=== PATIENT | male | born 1995 | race Hispanic/Latino ===

== ENCOUNTER 2018-05-17 15:59 | Observation (INO) | payer OTHER ==
[2018-05-17 16:43] VITALS: BMI 18.0
[2018-05-17] MEDS ORDERED: CEFTRIAXONE/SWI 2gm 2 GM/20 ML SYR IV ONE (17:00)
[2018-05-17 17:21] LABS: Absolute Lymphocytes (CBC) 1.8 K/uL (0.7-4.9); Absolute Monocytes 1.6 K/uL (0.1-1.3); Absolute Neutrophil 8.8 K/uL (1.8-8.0); Hematocrit 42.6 % (39.6-49.0); Lymphocytes % 14.7 % (15.3-44.8); MCH 29.1 pg (27.0-35.0); MCV 85.9 fL (80-100); MPV 7.6 fL (7.6-11.3); Monocytes % 12.6 % (3.3-12.3); RBC Red Blood Cell Count 4.96 M/uL (4.33-5.43)
[2018-05-17] MEDS ORDERED: MORPHINE 2 MG/ML SYR IV PRN (17:22)
[2018-05-17 17:40] LABS: ALT/SGPT 12 U/L (12-78); AST/SGOT 11 U/L (15-37); Albumin 3.5 g/dL (3.4-5.0); Alkaline Phosphatase 93 U/L (45-117); BUN Blood Urea Nitrogen 10 mg/dL (7-18); Bicarbonate 27 mmol/L (21-32); Bilirubin Total 0.8 mg/dL (0.2-1.0); Glucose Level 91 mg/dL (74-106); Potassium 3.6 mmol/L (3.5-5.1); Protein, Total 7.9 g/dL (6.4-8.2); Sodium Level 135 mmol/L (136-145)
[2018-05-17] MEDS: NA CHLORIDE 0.9% 1,000 ML IV SCH ×2 (18:03→22:21)
[2018-05-17] MEDS: MORPHINE 4 MG/ML SYR IV PRN (22:22)
[2018-05-18] MEDS: MORPHINE 4 MG/ML SYR IV PRN ×4 (02:14→23:59)
[2018-05-18] MEDS: NA CHLORIDE 0.9% 1,000 ML IV SCH ×4 (06:07→23:29)
--- NOTE | 2018-05-18 12:36 | P.CNS ---
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 Was seen by PCP and put on PCN BID but was unable to swallow the pills. He was crushing the tablets and dissolving them but could only tolerate 1 per day and would frequent vomit after taking. He did not improved. Yesterday evening, he was admitted to the floor for IV Abx. He continues to have severe sore throat and ear pain and difficulty swallowing. Allergies No Known All Allergy (Uncoded 06/16/17 21:32) Unknown No Known Allergies Allergy (Uncoded 12/16/17 19:39) Unknown Home Medications: Amoxicillin/Potassium Clav [Amox-Clav 875-125 mg Tablet] 1 tab PO BID 05/17/18 traMADol HCL [Ultram*] 1 tab PO Q6H PRN 05/17/18 - Past Medical/Surgical History Diabetic: No Past Medical History: Patient denies medical history Past Surgical History: Patient denies surgical history - Family History Mother Medical History: Diabetes - Social History Smoking Status: Current every day smoker Counseled patient to stop smoking for: less than 10 minutes Patient receptive to therapy: Yes Alcohol use: Yes CD- Drugs: No Caffeine use: No Place of Residence: Home Review of Systems ENT: As per HPI Physical Examination Temp Pulse Resp BP Pulse Ox 97.5 F 100 H 19 122/73 97 05/18/18 08:00 05/18/18 08:00 05/18/18 08:00 05/18/18 08:00 05/18/18 08:00 General: Alert, Cooperative HEENT: Atraumatic, Normocephalic, PERRLA, Other (moderate trismus due to pain. Uvular edema. R tonsil deviated toward midline) Neck: Supple Neurological: Other ([place] voice, significant difficult talking due to pain.) Laboratory Data (last 24 hrs) 05/17/18 17:10: Sodium 135 L, Potassium 3.6, BUN 10, Creatinine 0.90, Glucose 91 , Total Bilirubin 0.8, AST 11 L, ALT 12, Alkaline Phosphatase 93 05/17/18 17:10: WBC 12.4 H, Hgb 14.4, Hct 42.6, Plt Count 418 H Imagings Data: none performed - Problems (1) Tonsillar abscess Onset Date: 05/18/18 Current Visit: Yes Status: Acute Plan: Discussed options since he's failed medical therapy. Patient desired I&D in OR rather than in hospital room. Consent obtained verbally. Schedule TF elective cases. Continue NPO for now.
[2018-05-18] MEDS ORDERED: Ringers Lactate 1,000 ML IV ONE ×2 (16:05→17:26)
[2018-05-18] MEDS ORDERED: LIDOCAINE 1% W/EPI 1:100,000 MDV 50 ML VIAL ONE (17:25)
[2018-05-18] MEDS ORDERED: FENTANYL CITR 100 MCG/2 ML ONE (17:29)
[2018-05-18] MEDS ORDERED: BUPIVACA 0.25%/EPI 0.0005%/PF 30 ML VIAL ONE (17:29)
[2018-05-18] MEDS ORDERED: PROPOFOL 200 MG/20 ML VIAL IV ONE (17:32)
[2018-05-18] MEDS ORDERED: LIDOCAINE 2% MPF 5 ML VIAL ONE (17:34)
[2018-05-18] MEDS ORDERED: SUCCINYLCHOLINE 20 MG/ML (10 ML) IV ONE (17:36)
[2018-05-18] MEDS ORDERED: KETOROLAC 30 MG/ML INJ ONE (17:54)
[2018-05-18] MEDS ORDERED: DEXAMETHASONE 10 MG/ML VIAL ONE (17:54)
--- NOTE | 2018-05-18 18:08 | P.BOP ---
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
[2018-05-18] MEDS ORDERED: HYDROCOD 2.5mg-ACETAMIN 108mg/5mL Soln PO PRN (18:21)
[2018-05-18] MEDS: MEPERIDINE HCL 25 MG/0.5 ML ONE ×2 (18:30→18:38)
[2018-05-18] MEDS ORDERED: MEPERIDINE HCL 25 MG/0.5 ML ONE (18:58)
[2018-05-18] MEDS ORDERED: ONDANSETRON 4 MG/2 ML VIAL IV PRN (20:16)
[2018-05-18] MEDS: CLINDAMYCIN INJ 900 MG in NA CHLORIDE 0.9% 50 ML IV SCH ×2 (20:27→23:58)
[2018-05-18] MEDS: ENSURE ENLIVE 237 ML CAN PO SCH (21:00)
--- NOTE | 2018-05-18 23:44 | HP ---
Date of Admission: 05/17/2018 Chief Complaint: Pain, right tonsillar area. History Of Present Illness: A 22-year-old male who was seen in the office with acute exudative tonsi llitis. He was given Augmentin. The patient returned because of continued pain and difficulty with swallowing. He was found to have diffuse swelling of the right peritonsillar area compatible with th e clinical diagnosis of tonsillar abscess. The patient was admitted for observation for IV antibioti c as he could not swallow anything. He also was unable to talk because of the pain. Past Medical History: Essentially negative for any chronic illnesses. Family History: Negative. Personal History: Nonsmoker. Home Medicines: Augmentin. Review of Systems: Negative. Physical Examination: General: A 22-year-old male in dtavfpin-xo-zhnbyk pain. HEENT: Diffuse swelling of the right submandibular area and right tonsillar area orally noted. Neck: Supple. JVD negative. Chest: Clear. Heart: Regular. Abdomen: Soft. Extremities: No edema. Laboratory Data: White count 12,000. Assessment: Tonsillar abscess. Plan: N.p.o., IV fluids, Rocephin, ENT consultation. REI/FREDIS Voice ID: [id number]
--- NOTE | 2018-05-19 01:48 | PN ---
Dictating note for hospitalist who is going to cover me for the next 2 days. The patient underwent surgery. The patient will be rechecked by Dr. Morataya tomorrow and very likely he will be discharged; however, if there is any medical problems, those problems will be new, the on ly problem the patient has is peritonsillar infection. REI/FREDIS Voice ID: [id number] Report ID: [id number]
[2018-05-19] MEDS: MORPHINE 4 MG/ML SYR IV PRN ×2 (04:36→08:58)
[2018-05-19] MEDS: NA CHLORIDE 0.9% 1,000 ML IV SCH ×2 (04:40→09:00)
[2018-05-19 05:23] LABS: Absolute Lymphocytes (CBC) 0.5 K/uL (0.7-4.9); Absolute Monocytes 0.3 K/uL (0.1-1.3); Absolute Neutrophil 5.9 K/uL (1.8-8.0); Basophils % 0.3 % (0-1.3); Hematocrit 35.6 % (39.6-49.0); Lymphocytes % 7.5 % (15.3-44.8); MCH 29.6 pg (27.0-35.0); MCV 84.9 fL (80-100); MPV 8.1 fL (7.6-11.3); Monocytes % 4.7 % (3.3-12.3); RBC Red Blood Cell Count 4.19 M/uL (4.33-5.43)
[2018-05-19] MEDS: CLINDAMYCIN INJ 900 MG in NA CHLORIDE 0.9% 50 ML IV SCH ×2 (05:38→11:49)
[2018-05-19 05:48] LABS: Blood Morphology Comment NOT SEEN (NOT SEEN); Platelet Estimate ADEQ; Urine White Blood Cell Casts OK
[2018-05-19] MEDS: ENSURE ENLIVE 237 ML CAN PO SCH (08:59)
--- NOTE | 2018-05-19 11:36 | P.DS ---
Admission Date: 05/17/18 Discharge Date: 05/19/18 Disposition: ROUTINE DISCHARGE Discharge Condition: GOOD Reason for Admission: sore throat Consultations: ENT - Dr Morataya Procedures: I&D - Problems (1) Tonsillar abscess Onset Date: 05/18/18 Current Visit: Yes Status: Acute Brief History of Present Illness: 22yo with 2-3 week history of progressive sore throat, now with dysphagia/ odynophagia, right ear pain and trismus. Was seen by PCP and put on PCN BID but was unable to swallow the pills. He was crushing the tablets and dissolving them but could only tolerate 1 per day and would frequent vomit after taking. He did not improved. Yesterday evening, he was admitted to the floor for IV Abx. He continues to have severe sore throat and ear pain and difficulty swallowing. Hospital Course: Overall during hospital stay pt remained stable. Pt was admitted to the hospital for Tonsilar Abscess after he failed outpatient therapy with PO medication. ENT was consulted who performed bedside I&D and pt was started on IV abx and steriods. Culture were sent to lane. Monospot test was negative. Pt improved markedly and had decrease Swelling after i&D. Pt was given CLD which he tolerated well and his diet was advance to GI soft diet. Pt tolerated diet well. Pt was then Switched to PO clindamycin and steriods scheduled. Pt then was discharged [facility] to [email or web address] with ENT outpt. ENT will . with culture. Vital Signs/Physical Exam: Temp Pulse Resp BP Pulse Ox 97.1 F 54 18 116/63 98 05/19/18 07:48 05/19/18 07:48 05/19/18 07:48 05/19/18 07:48 05/19/18 07:48 General: Alert, In no apparent distress HEENT: Atraumatic, PERRLA, EOMI Neck: Supple, JVD not distended, Other (Thoart improved. Swelling better. Swollowing okay and no drooling noted. ) Respiratory: Clear to auscultation bilaterally, Normal air movement Cardiovascular: Regular rate/rhythm, Normal S1 S2 Gastrointestinal: Normal bowel sounds, No tenderness Musculoskeletal: No tenderness Integumentary: No rashes Neurological: Normal speech, Normal tone, Normal affect Lymphatics: No axilla or inguinal lymphadenopathy Laboratory Data at Discharge: WBC 6.7 K/uL (4.3-10.9) D 05/19/18 04:41 Hgb 12.4 g/dL (13.6-17.9) L 05/19/18 04:41 Hct 35.6 % (39.6-49.0) L D 05/19/18 04:41 Plt Count 362 K/uL (152-406) 05/19/18 04:41 Sodium 135 mmol/L (136-145) L 05/17/18 17:10 Potassium 3.6 mmol/L (3.5-5.1) 05/17/18 17:10 BUN 10 mg/dL (7-18) 05/17/18 17:10 Creatinine 0.90 mg/dL (0.55-1.3) 05/17/18 17:10 Glucose 91 mg/dL (74-106) 05/17/18 17:10 Total Bilirubin 0.8 mg/dL (0.2-1.0) 05/17/18 17:10 AST 11 U/L (15-37) L 05/17/18 17:10 ALT 12 U/L (12-78) 05/17/18 17:10 Alkaline Phosphatase 93 U/L (45-117) 05/17/18 17:10 Home Medications: Clindamycin HCl 300 mg PO BID #28 capsule 05/19/18 Prednisone [Deltasone] 20 mg PO BID #10 tablet 05/19/18 traMADol HCL [Ultram*] 1 tab PO Q6H PRN #15 tab 05/19/18 New Medications: Clindamycin HCl 300 mg PO BID #28 capsule Prednisone [Deltasone] 20 mg PO BID #10 tablet traMADol HCL [Ultram*] 1 tab PO Q6H PRN #15 tab PRN Reason: Pain Patient Discharge Instructions: Please f.u with Dr Morataya ENT in 1 week post discharge. New medication. Clindamycin 300mg BID for 14 days. Prednisone 20mg BID for 10 days. Tramadol 50mg q6h PRN for pain Diet: Jasper Activity: Ad ashely Followup: Mira Morataya MD [ACTIVE - CAN ADMIT] - 1 Week (Please call office to schedule follow appointment. )
[2018-05-19 12:12] VITALS: BP 123/89; TEMP 98.6
[2018-05-19 12:13] VITALS: O2SAT 99
--- NOTE | 2018-05-24 17:41 | OP ---
Date of Procedure: 05/18/2018 Surgeon: Mira Morataya MD Internet Researcher: None. Preoperative Diagnosis: Right peritonsillar abscess. Postoperative Diagnosis: Severe tonsillitis. Procedure: Incision and drainage of peritonsillar abscess. Blood Loss: Minimal. Specimens: None. Indication For Procedure: Vasquez is a 22-year-old with a 2-week history of progressive sore throat, f ailing outpatient antibiotics, and admitted for IV antibiotics. On exam, he was noted to have signif icant deviation of the right tonsil toward the midline with severe tonsillitis, odynophagia and was a dmitted for IV antibiotics and concern for peritonsillar abscess. Clinically, there was suspicion fo r peritonsillar abscess, but no imaging was performed. The patient was noted to have moderate leukoc ytosis. The risks, benefits, and alternatives to the procedure were discussed with the patient. He did not feel able to tolerate a procedure under local anesthesia, and therefore was brought to the op erating room for I and D under general anesthesia. Description Of Procedure: The patient was brought to the operating room. He was placed under genera l anesthesia via oral endotracheal tube. The head of bed was turned 90 degrees. A shoulder roll was placed and the neck was extended. The McIvor mouth gag was placed and suspended from the Alberts stand . The right tonsil was significantly erythematous, edematous with purulent exudates, and deviated to parsons its midline. A red rubber catheter was placed through the right nostril with the tip withdrawn through the oropharynx and placed to suspend the soft palate. An incision was made near the superior pole of the tonsil through the mucosa and gentle spreading with a tonsil clamp was performed. The pe ritonsillar region was gently probed, but no specific pocket of pus was found. The posterior pillar was significantly edematous when the tonsil was retracted and the space between the posterior pillar and the tonsil was likewise probed with a tonsil clamp, but no pocket of purulence was noted. Manual pressure was applied to the infratonsillar region and tonsil, but again no specific pocket of pus wa s elicited. The area around the incision was injected with local anesthetic to aid in postoperative pain. The mouth was irrigated and suctioned. The red rubber catheter was removed and McIvor mouth g ag was released. There was no evidence of injury to the lips, teeth, or tonsil and the procedure was concluded. The patient was returned to care of anesthesia for awakening extubation in the operating room, which proceeded without difficulty. Disposition: The patient will be returned to the floor to start diet as tolerated and if clinically improving can be discharged under the guidance of the primary team. ALBERTO Voice ID: [id number] Report ID: [id number]
== END 2018-05-19 13:24 | disposition home or self-care (01) ==
LOC: 4TH 16:11
PROVIDERS: ADMIT Hospitalist; ATTEND Internal Medicine
PROC: 0C9P3ZX Drainage of Tonsils, Percutaneous Approach, Diagnostic (ICD-10-PCS; principal; 2018-05-18 13:15)
DX: J36 Peritonsillar abscess (principal); J03.90 Acute tonsillitis, unspecified
CPT/HCPCS: 36415; 80053; 85025; 86308; G0378; J0330; J0696; J1100; J2175; J2270; J2405; J3010; J7030

== ENCOUNTER 2018-07-13 00:15 | Emergency (ER) | payer OTHER ==
[2018-07-13] MEDS ORDERED: TETANUS & DIPHTHERIA TOX,ADULT 0.5 ML VIAL ONE (00:33)
[2018-07-13] MEDS ORDERED: LIDOCAINE 1% W/EPI 1:100,000 MDV 50 ML VIAL ONE (00:50)
--- NOTE | 2018-07-13 01:31 | ER ---
Nurse's Notes [facility] Name: Vasquez Castaneda Age: 22 yrs Sex: Male : 1995 Arrival Date: 07/13/2018 Time: 00:15 Bed 20 Private MD: Ryne Ramos R Diagnosis: Laceration without foreign body of left hand Presentation: 07/13 00:22 Presenting complaint: Patient states: he was working on his car and was using a knife bb to cut with and accidentally cut his left hand with the knife approx 4 hours ago. Transition of care: patient was not received from another setting of care. Complicating Factors: There are no complicating factors for this patient. Onset of symptoms was July 12, 2018. Risk Assessment: Do you want to hurt yourself or someone else? Patient reports no desire to harm self or others. Initial Sepsis Screen: Does the patient meet any 2 criteria? No. Patient's initial sepsis screen is negative. Does the patient have a suspected source of infection? No. Patient's initial sepsis screen is negative. Care prior to arrival: None. 00:22 Method Of Arrival: Ambulatory bb 00:22 Acuity: ZANA 3 bb Historical: - Allergies: 00:24 No Known Allergies; bb - Home Meds: 00:24 None [Active]; bb - PMHx: 00:24 peritonsillar abscess; bb - PSHx: 00:24 I\\T\\D peritonsillar abscess; bb - Immunization history:: Adult Immunizations up to date. - Social history:: Smoking status: Patient uses tobacco products, denies chronic smoking, but will smoke occasionally, Patient uses alcohol, but reports only rare drinking. Patient/guardian denies using street drugs. - Ebola Screening: : No symptoms or risks identified at this time. Screenin:56 Abuse screen: Denies threats or abuse. Denies injuries from another. Nutritional bs1 screening: No deficits noted. Tuberculosis screening: No symptoms or risk factors identified. Fall Risk None identified. Assessment: 00:30 General: Appears in no apparent distress. comfortable, Behavior is calm, cooperative, bs1 appropriate for age. Pain: Complains of pain in left palm of hand. Neuro: Level of Consciousness is awake, alert, obeys commands. Cardiovascular: Heart tones S1 S2 present Capillary refill < 3 seconds Patient's skin is warm and dry. Respiratory: Airway is patent. GI: No signs and/or symptoms were reported involving the gastrointestinal system. : No signs and/or symptoms were reported regarding the genitourinary system. EENT: No signs and/or symptoms were reported regarding the EENT system. Derm: 1 in laceration noted to left palm of hand. Musculoskeletal: Circulation, motion, and sensation intact. Capillary refill < 3 seconds, Range of motion: intact in all extremities. Injury Description: Laceration sustained to left palm of hand is clean, 0.5 to 2.5 cm long, was sustained 4 hours ago. 00:35 Reassessment: Cleaned patients laceration with NS/chlorhexidine, patient began to feel bs1 lightheaded and appeared pale. Patients girlfriend states "he has not eaten much today and he has been working outside in the heat and he gets like this sometime." Patient was given a warm blanket, coke, ryan crackers and peanut butter.". 00:55 Reassessment: Patient reports feeling better. bs1 01:53 Reassessment: Patient and/or family updated on plan of care and expected duration. Pain bb level reassessed. Patient is alert, oriented x 3, equal unlabored respirations, skin warm/dry/pink. sutures intact, neosporin applied covered with non-adherant pad and kerlix, pt verbalized understanding of and agrees to plan of care discharge instructions given pt ambulated with steady gait to exit accompanied by family. Vital Signs: 00:24 Weight 57.15 kg (R); Height 5 ft. 9 in. (175.26 cm) (R); Pain 9/10; bb 00:36 BP 107 / 59; Pulse 56; Resp 16 S; Temp 98(O); Pulse Ox 98% on R/A; bs1 00:45 BP 126 / 84; Pulse 68; Resp 16 S; Pulse Ox 100% ; bs1 01:30 BP 125 / 74; Pulse 73; Resp 16 S; Temp 98.7(O); Pulse Ox 98% on R/A; Pain 0/10; bb 00:24 Body Mass Index 18.61 (57.15 kg, 175.26 cm) bb ED Course: 00:15 Patient arrived in ED. ds1 00:16 Ryne Ramos MD is Private Physician. ds1 00:17 Sony Jason PA is PHCP. cp 00:17 Snoy Sherman MD is Attending Physician. cp 00:23 Triage completed. bb 00:24 Alina Martinez, JEROME is Primary Nurse. bs1 00:24 Arm band placed on Patient placed in an exam room, on a stretcher. Family accompanied bb patient. 00:26 Wound care: to laceration located on Palm of left hand was cleaned with Hibiclens, mt Patient tolerated well. 00:35 X-ray completed. Portable x-ray completed in exam room. Patient tolerated procedure kw well. 00:35 XRAY Hand LEFT 3 View In Process Unspecified. EDMS 00:35 Patient has correct armband on for positive identification. Bed in low position. Call bs1 light in reach. Side rails up X 1. Pulse ox on. NIBP on. Warm blanket given. 01:20 Assist provider with laceration repair on left hand that was 2.5 cm. or less using ritu sutures. Set up tray. Performed by Sony MCNEAL Dressed with Kerlix, Neosporin, non-adherant pad Patient tolerated well. Patient did not have IV access during this emergency room visit. Administered Medications: 00:33 Drug: Tetanus-Diphtheria Toxoid Adult 0.5 ml {Wood Caulker: [employer]. Exp: bs1 08/15/2020. Lot #: [id number]. } Route: IM; Site: right deltoid; 01:51 Follow up: Response: No adverse reaction bb 01:20 Drug: Lidocaine-Epinephrine -1%: (1:100,000) 5 ml {Note: to affected area by Scarlett MCNEAL.} Volume: 20 ml; Route: Infiltration; 01:53 Follow up: Response: No adverse reaction bb Outcome: 01:20 Discharged to home bb 01:20 Condition: stable 01:20 Discharge instructions given to patient, Instructed on discharge instructions, follow up and referral plans. wound care, Demonstrated understanding of instructions, follow-up care, wound care. 01:30 Discharge ordered by . cp 01:57 Patient left the ED. bb Signatures: Dispatcher [employer] EDCT Barbara Payan ds1 Leela Majano RN RN bb Kerrie Ely Corey, PA PA cp Thompson, Moriah mt Martinez, Alina, RN RN bs1
--- NOTE | 2018-07-13 01:31 | EDPHYS ---
Physician Documentation [facility] Name: Vasquez Castaneda Age: 22 yrs Sex: Male : 1995 Arrival Date: 07/13/2018 Time: 00:15 Bed 20 Private MD: Ryne Ramos R ED Physician Sony Sherman HPI: 07/13 00:22 This 22 yrs old Male presents to ER via Unassigned with complaints of cp Laceration To Hand. 00:22 The patient has a laceration occurred at home, The injury was using knife while working cp on car. 00:22 The laceration(s) is(are) located on the allred side of left hand. Onset: The cp symptoms/episode began/occurred just prior to arrival. Associated signs and symptoms: Pertinent negatives: heavy bleeding, numbness distal to injury. Historical: - Allergies: 00:24 No Known Allergies; bb - Home Meds: 00:24 None [Active]; bb - PMHx: 00:24 peritonsillar abscess; bb - PSHx: 00:24 I\T\D peritonsillar abscess; bb - Immunization history:: Adult Immunizations up to date. - Social history:: Smoking status: Patient uses tobacco products, denies chronic smoking, but will smoke occasionally, Patient uses alcohol, but reports only rare drinking. Patient/guardian denies using street drugs. - Ebola Screening: : No symptoms or risks identified at this time. ROS: 00:30 Constitutional: Negative for chills, fever. cp 00:30 Eyes: Negative for injury, pain, redness, and discharge. cp 00:30 Cardiovascular: Negative for chest pain. 00:30 Respiratory: Negative for cough, shortness of breath, wheezing. 00:30 Abdomen/GI: Negative for abdominal pain, nausea, vomiting, and diarrhea. 00:30 Skin: Positive for laceration(s), of the allred side left hand. 00:30 Neuro: Negative for numbness, weakness. 00:30 All other systems are negative. Exam: 00:34 Head/Face: Normocephalic, atraumatic. cp 00:34 Constitutional: The patient appears in no acute distress, alert, awake, well developed, well nourished, anxious. 00:34 Eyes: Periorbital structures: appear normal, Conjunctiva: normal, Lids and lashes: cp appear normal, bilaterally. 00:34 ENT: External ear(s): are unremarkable, Nose: is normal, Mouth: is normal, Posterior pharynx: is normal, airway is patent. 00:34 Chest/axilla: Inspection: normal. 00:34 Cardiovascular: Rate: bradycardic. 00:34 Respiratory: the patient does not display signs of respiratory distress, Respirations: normal. 00:34 Musculoskeletal/extremity: ROM: full active range of motion, in the left hand, Perfusion: the extremity is normally perfused throughout, Sensation intact. 00:34 Skin: injury, laceration(s), the wound is approximately 1.5 cm(s), of the allred side of left hand, that can be described as no foreign body, linear, with mild bleeding. Vital Signs: 00:24 Weight 57.15 kg (R); Height 5 ft. 9 in. (175.26 cm) (R); Pain 9/10; bb 00:36 BP 107 / 59; Pulse 56; Resp 16 S; Temp 98(O); Pulse Ox 98% on R/A; bs1 00:45 BP 126 / 84; Pulse 68; Resp 16 S; Pulse Ox 100% ; bs1 01:30 BP 125 / 74; Pulse 73; Resp 16 S; Temp 98.7(O); Pulse Ox 98% on R/A; Pain 0/10; bb 00:24 Body Mass Index 18.61 (57.15 kg, 175.26 cm) bb Laceration: 01:26 Wound Repair of 1.5cm ( 0.6in ) subcutaneous laceration to allred side of left hand. cp Linear shaped.. Distal neuro/vascular/tendon intact. Anesthesia: Wound infiltrated with 3 mls of 1% lidocaine, Local anesthetic administered with 1% lidocaine w/ Epi. Wound prep: Moderate cleansing by nurse, Wound irrigation by me. Skin closed with 2 4-0 Prolene using interrupted sutures and sterile technique. Dressed with Bacitracin. Patient tolerated well. MDM: 00:19 Patient medically screened. francheska 01:00 Differential diagnosis: superficial laceration, tendon injury, puncture wound, open cp fracture. 01:30 Data reviewed: vital signs, nurses notes, radiologic studies, plain films, and as a cp result, I will discharge patient. 01:30 Test interpretation: by ED physician or midlevel provider: plain radiologic studies. cp Counseling: I had a detailed discussion with the patient and/or guardian regarding: the historical points, exam findings, and any diagnostic results supporting the discharge/admit diagnosis, radiology results, to return to the emergency department if symptoms worsen or persist or if there are any questions or concerns that arise at home. Response to treatment: the patient's symptoms have markedly improved after treatment, and as a result, I will discharge patient. 07/13 00:20 Order name: XRAY Hand LEFT 3 View cp 07/13 00:20 Order name: Wound Care: please clean and irrigate wound; Complete Time: 00:33 cp 07/13 00:42 Order name: Prolene, Sutures: 4-0; Complete Time: 00:48 cp 07/13 00:42 Order name: Dressing - Wound; Complete Time: 01:51 cp 07/13 00:42 Order name: Gloves, Sterile; Complete Time: 00:48 cp 07/13 00:42 Order name: Setup Suture Tray; Complete Time: 00:48 cp 07/13 01:26 Order name: Wound dressing; Complete Time: 01:51 cp Administered Medications: 00:33 Drug: Tetanus-Diphtheria Toxoid Adult 0.5 ml {Public Address System Installer: [employer]. Exp: bs1 08/15/2020. Lot #: [id number]. } Route: IM; Site: right deltoid; 01:51 Follow up: Response: No adverse reaction bb 01:20 Drug: Lidocaine-Epinephrine -1%: (1:100,000) 5 ml {Note: to affected area by Scarlett chaney PA.} Volume: 20 ml; Route: Infiltration; 01:53 Follow up: Response: No adverse reaction bb Disposition: 07:28 Co-signature as Attending Physician, Sony Sherman MD I agree with the assessment and [facility] plan of care. Disposition: 07/13/18 01:30 Discharged to Home. Impression: Laceration without foreign body of left hand. - Condition is Stable. - Discharge Instructions: Laceration Care, Adult. - Medication Reconciliation Form, Thank You Letter, Antibiotic Education, Prescription Opioid Use form. - Follow up: Private Physician; When: 7 - 10 days; Reason: Staple/Suture removal. - Problem is new. - Symptoms have improved. Signatures: Dispatcher [employer] Sony Chambers MD MD cha Ballard, Brenda, RN RN bb Sony Jason PA PA cp Salazar, Brittany RN RN bs1 Corrections: (The following items were deleted from the chart) 01:57 01:30 07/13/2018 01:30 Discharged to Home. Impression: Laceration without foreign body bb of left hand. Condition is Stable. Forms are Medication Reconciliation Form, Thank You Letter, Antibiotic Education, Prescription Opioid Use. Follow up: Private Physician; When: 7 - 10 days; Reason: Staple/Suture removal. Problem is new. Symptoms have improved. cp
[2018-07-13 02:03] VITALS: TEMP 98
[2018-07-13 02:04] VITALS: BP 126/84; O2SAT 100
--- NOTE | 2018-07-13 08:20 | RAD REPORT ---
EXAM DESCRIPTION: RAD - Hand Left 3 View - 07/13/2018 12:36 am CLINICAL HISTORY: laceration injury COMPARISON: <Comparisons> FINDINGS: Soft tissue swelling is seen along the ulnar aspect of the hand. Swelling is also seen izzy ng the distal fourth digit no fracture, dislocation or foreign body.
== END 2018-07-13 01:57 | disposition home or self-care (01) ==
LOC: ER 00:15
PROC: 0JQK0ZZ Repair Left Hand Subcutaneous Tissue and Fascia, Open Approach (ICD-10-PCS; principal; 2018-07-13)
DX: S61.412A Laceration without foreign body of left hand, initial encounter (principal); F17.210 Nicotine dependence, cigarettes, uncomplicated; W26.0XXA Contact with knife, initial encounter; Y93.89 Activity, other specified; Y92.9 Unspecified place or not applicable; Z23 Encounter for immunization
CPT/HCPCS: 90714; 99284